=== PATIENT | male | born 2000 | race Caucasian/White ===

== ENCOUNTER 2022-03-08 12:13 | Emergency (ER) | payer SELFPAY ==
[2022-03-08 12:15] VITALS: BP 122/77; PULSE 87; RESP 14; TEMP 36.6; O2SAT 99; BMI 19.8
--- NOTE | 2022-03-08 12:31 | EX.ED.UPPERE ---
HPI History of Present Illness HPI Narrative: Patient presents with laceration to his left hand that occurred today. Patient was carrying a washing machine when the other person who was helping him slipped and let go of the washing machine. Patient states he cut his fingers on the edge of the metal. Patient admits to some bleeding over the index middle and ring fingers. Patient admits to some tingling in his index and middle fingers. Patient denies any weakness. Patient is unsure of his last tetanus. Patient states his pain is better with elevation of his left hand. Chief Complaint: Laceration Occured/Mechanism Comment: Cut on edge of washing machine Onset/Context/Timing Onset: Today Context: Sudden Onset Timing: Continuous Quality of Pain: Sharp Location: Left index middle and ring fingers Worsened by: Dependent position Relieved by: Elevation of the left hand Associated Symptoms Associated Symptoms: Positive for Parasthesia; Negative for Weakness and Loss of Funtion Narrative Tetanus Immunization: Unknown PFSH PFS Medical History no medical history no medical history Allergy/AdvReac Type Severity Reaction Status Date / Time No Known Allergies Allergy Verified 03/08/22 12:15 Surgical History no surgical history no surgical history Social History Smoking Status: Unknown if ever smoked ROS ROS ED Constitutional Constitutional ED: Denies chills or fever(s) Eyes Eyes: Denies blurry vision or change in vision ENT ENT ED: Denies rhinorrhea or sore throat Cardiovascular Cardiovascular: Denies chest pain or palpitations Respiratory/Chest Respiratory/Chest: Denies cough or dyspnea Gastrointestinal Gastrointestinal: Denies nausea or vomiting Genitourinary Genitourinary ED: Denies dysuria or hematuria Musculoskeletal Musculoskeletal: Denies back pain or neck pain Integumentary Denies abscess or rash Neurologic Neurologic: Denies headache(s) or weakness Allergic/Immunologic Allergic/Immunologic ED: Denies mouth swelling or urticaria EXAM Physical Exam Const Vital Signs: 03/08/22 12:15 Temperature 97.9 F Temperature Source Temporal Pulse Rate 87 Respiratory Rate 14 Blood Pressure 122/77 H Blood Pressure Mean 92 Pulse Ox 99 Oxygen Delivery Method Room Air Positive well nourished and well developed General Appearance ED: well developed and NAD HEENT Reports moist mucous membranes Extremity Extremity Narrative: There is a 1 cm full-thickness linear laceration over the palmar aspect of the left index finger on the proximal phalanx. There is a 1 cm full-thickness linear laceration on the palmar aspect of the proximal phalanx of the left middle finger. There is a 0.5 cm superficial laceration on the palmar aspect of the middle phalanx of the left ring finger. There is no active bleeding. There is no obvious deformity. There is mild gapping of the wound margins of the index and middle finger lacerations. There is no gapping of the wound margins of the ring finger. There are no foreign bodies. Strength is 5/5 in flexion extension of the MP, PIP, and DIP joints. Capillary refill less than 2 seconds in all digits. Sensation was intact to light touch in all digits.. Neuro oriented x3, CN's II-XII intact bilaterally, moves all extremities, no focal motor deficits and no sensory deficits noted Sensorium / Orientation: alert Psych mental status grossly normal MDM MDM MDM Narrative Medical decision making narrative: Patient was given a tetanus booster. The left index and middle finger were anesthetized 1% plain lidocaine via digital block. The wounds were cleaned and irrigated with copious amounts of normal saline. The laceration of the left index finger was closed with 1 simple interrupted #4-0 nylon suture under sterile technique. The laceration of the left middle finger was closed with 2 simple interrupted #4-0 nylon sutures under sterile technique. Bacitracin dressings were applied. Patient tolerated the procedure well. Patient was instructed to keep the wounds clean and dry. Patient was instructed to follow-up with his primary care physician in 5 days for wound recheck and suture removal. Patient understood and was agreeable with the plan. All questions were answered. Discharge Plan Triage Chief Complaint: Laceration ED Provider: Phil Jameson Dx/Rx/DC Orders Clinical Impression: Laceration of left index finger, Laceration of left middle finger Instructions: ED Laceration, Hand: All Closures Primary Care Provider: Care Physician,No Primary Referrals: Rosa Hammer MD [STAFF PHYSICIAN] - 5 Days for suture removal Care Physician,No Primary [Primary Care Provider] - Disposition Disposition: Home, Self Care
[2022-03-08] MEDS: Diphth,Pertuss(Acell),Tet Vac 0.5 ML Vial IM (12:47)
[2022-03-08] MEDS: Lidocaine 1% (20 ml mdv) 20 ML Vial INFILT (12:47)
--- NOTE | 2022-03-08 13:45 | CM.ED ---
Social Work Consult: No PCP/Self-pay Referral source: Self referral due to above. Met with patient in room. Introduced self and social media specialist role. Patient agreeable to speak with this social media specialist. This social media specialist broached conversation about self-pay status. Patient states I actually have insurance, I just can't remember what it is. This social media specialist encouraged patient to call registration at [facility] when patient is able to confirm insurance provider. Patient voiced to have a card from registration and plans to call into the hospital later within 24hours. This social media specialist broached topic of no PCP. Patient confirms to not have a PCP and is agreeable to this social media specialist providing patient with list of PCP's that are local to patient geographical region, list provided. Patient denies any further needs/concerns. No further services requested or indicated. Kenyatta MALDONADO, TAZS
== END 2022-03-08 13:54 | disposition home or self-care (01) ==
PROVIDERS: Emergency Provider Emergency Medicine; Visit Provider Emergency Medicine
DX: S61.211A Laceration without foreign body of left index finger without damage to nail, initial encounter (principal); S61.213A Laceration without foreign body of left middle finger without damage to nail, initial encounter; Z23 Encounter for immunization; W26.8XXA Contact with other sharp object(s), not elsewhere classified, initial encounter; Y93.E6 Activity, residential relocation
CPT/HCPCS: 12001; 90471; 90715; 99283

== ENCOUNTER 2024-05-09 23:14 | Emergency (ER) | payer OTHER, SELFPAY ==
[2024-05-09 23:15] VITALS: BP 123/69; PULSE 92; RESP 18; TEMP 35.9; O2SAT 95; BMI 18.9
[2024-05-10] MEDS: Doxycycline 100 MG CAPSULE PO (00:30)
[2024-05-10] MEDS: Ceftriaxone 500 MG Vial IM (00:30)
[2024-05-10] MEDS: oxyCODONE 5 MG Tablet PO (00:30)
[2024-05-10 00:56] LABS: Red Blood Cells-Urine 0 SEEN /hpf (0-5); White Blood Cells 0 SEEN /hpf (0-5)
[2024-05-10 01:14] VITALS: BP 121/66; PULSE 76; RESP 18; O2SAT 95
[2024-05-10 01:18] LABS: Color, Urine Yellow (Yellow); Glucose, Dipstick Normal (Normal); Ketone-Dipstick 15 mg/dl (Negative); Leukocyte Esterase-Dipstick Negative /ul (Negative); Nitrite-Dipstick Negative (Negative); Occult Blood-Urine Negative /ul (Negative); Protein-Dipstick 15 mg/dl (Negative); Specific Gravity, Urine 1.015 (1.002-1.030); Urine Bilirubin Dipstick Negative (Negative); Urine Clarity Clear (Clear); Urine Urobilinogen 1 mg/dl (Normal)
[2024-05-10 01:26] LABS: Amorphous Sediment 1+; Bacteria 3+ /hpf (None Seen); Hyaline Cast 0-5 SEEN /lpf (0-5); Mucous, Urine 1+ /hpf (<or=2+); Squamous Epithelial Cells - UA 0-5 SEEN /hpf (0-5)
--- NOTE | 2024-05-10 01:38 | EDS_ITS ---
HPI History of Present Illness Chief Complaint: Male Pain/Injury Informant: patient Narrative Narrative: Patient is a 23-year-old male with no significant past medical history. He states that over the past 3 days he has had mild dysuria as well as left-sided testicular pain. He states he has been no trauma or excessive activity. He states that today the pain increased in severity and this concerned him and therefore he comes in for evaluation. He denies any penile discharge or previous history of STD. PFSH PFSH Home Medications ?Medication ?Instructions ?Recorded ?Last Taken ?Type doxycycline hyclate 100 mg capsule 100 mg PO BID 14 days #28 caps 05/10/24 Unknown Rx oxycodone-acetaminophen 5 mg-325 1 tab PO Q6H PRN pain 3 days #12 05/10/24 Unknown Rx mg tablet (Percocet) tabs Allergy/AdvReac Type Severity Reaction Status Date / Time No Known Allergies Allergy Verified 05/09/24 23:14 Social History Smoking Status: Never smoker ROS ROS ED Constitutional Constitutional ED: Denies chills or fever(s) ENT ENT ED: Denies sore throat Cardiovascular Cardiovascular: Denies chest pain Respiratory/Chest Respiratory/Chest: Denies cough or dyspnea Gastrointestinal Gastrointestinal: Denies abdominal pain, diarrhea, nausea or vomiting Genitourinary Genitourinary ED: Reports dysuria and other Details: Positive left testicular pain ; Denies hematuria or urinary frequency Musculoskeletal Musculoskeletal: Denies back pain Integumentary Denies rash Neurologic Neurologic: Denies headache(s) Hematologic/Lymphatic Hematologic/Lymphatic: Denies easy bleeding or easy bruising EXAM Physical Exam Const Vital Signs: 05/09/24 23:15 05/10/24 01:14 05/10/24 01:51 Temperature 96.7 F L 97.7 F L Temperature Source Temporal Pulse Rate 92 76 76 Respiratory Rate 18 18 18 Blood Pressure 123/69 H 121/66 H 121/66 H Blood Pressure Mean 87 84 84 Pulse Ox 95 95 95 Oxygen Delivery Method Room Air Room Air Positive well nourished and well developed General Appearance ED: well developed HEENT HEENT Narrative: Normocephalic atraumatic Eyes PERRL and EOMs intact bilaterally General Eye ED: Negative for scleral icterus Neck supple Resp normal respiratory effort and clear to auscultation bilaterally Cardio regular rate and regular rhythm GI non-tender, non-distended and no masses Auscultation: normoactive bowel sounds Palpation: soft Narrative: Normal uncircumcised male without blood or discharge from the urethral meatus. No testicular swelling noted. No abnormal lie to the testicles. No obvious hernia palpated. There is increased pain on palpation of the upper posterior section of the left testicle. No overlying erythema or warmth or masses. Back/Spine no CVA tenderness Extremity normal to inspection Neuro oriented x3 and CN's II-XII intact bilaterally Sensorium / Orientation: alert Motor Exam: strength 5/5 throughout Psych mental status grossly normal Skin no rashes or lesions noted MDM MDM MDM Narrative Medical decision making narrative: Patient arrived with stable vitals and reported mild dysuria that has increased over the last few days and now has testicular pain. Differential diagnosis is for UTI versus pyelonephritis versus STD versus epididymitis versus testicular torsion. There is no abnormal lie to the testicle and the patient has dysuria and is symptoms of increased gradual for multiple days which goes against torsion. Therefore do not feel there is need for an emergent ultrasound but patient will be given an order to have 1 done as an outpatient. With concern for UTI versus STD a urine sample and gonorrhea/committee test were obtained. Urine shows +3 bacteria without white blood cells and based on his young age and symptoms this is most likely correlate with STD. Therefore he was given Rocephin and placed on doxycycline. On reevaluation he is resting comfortably and therefore is history exam and workup are most consistent with STD and there are no obvious signs of torsion by exam and he does not have testicular cellulitis or abscess there is no need for further workup and he is otherwise safe for discharge History & Record Review Discussion w/independent historian: Patient Lab Data Labs: Laboratory Results - last 24 hr 05/10/24 00:43 Urine Color Yellow Urine Clarity Clear Urine pH 7.0 Ur Specific [place] 1.015 Urine Protein 15 H Urine Glucose (UA) Normal Urine Ketones 15 H Urine Occult Blood Negative Urine Nitrite Negative Urine Bilirubin Negative Urine Urobilinogen 1 H Ur Leukocyte Esterase Negative Urine RBC 0 SEEN Urine WBC 0 SEEN Ur Squamous Epith Cells 0-5 SEEN Amorphous Sediment 1+ Urine Bacteria 3+ Hyaline Casts 0-5 SEEN Urine Mucus 1+ Discharge Plan Triage Chief Complaint: Male Pain/Injury ED Provider: Christiano Rosas Dx/Rx/DC Orders Clinical Impression: Acute epididymitis Instructions: ED Epididymitis, ED STI Male Treated Prescriptions: New doxycycline hyclate 100 mg capsule 100 mg PO BID 14 Days Qty: 28 0RF oxycodone-acetaminophen [Percocet] 5-325 mg tablet 1 tab PO Q6H PRN (Reason: pain) 3 Days Qty: 12 0RF Other Ambulatory Orders: Testicular with Arterial Flow (Routine) Facility: [facility] - Location: [facility] Ordered By: Dr. Christiano Rosas Primary Care Provider: Baldo Bruno Referrals: Baldo Bruno DO [Primary Care Provider] - Activity Restrictions/Additional Instructions: Please obtain your outpatient testicular ultrasound to further assess the cause of your testicular pain. However your exam indicates this is most likely epididymitis caused by a STD. Take the doxycycline as directed to help resolve the infection and pain and refrain from sexual activity until your antibiotics are completed. Return to the ER should you have any further concerns Print Language: [place] Citizen Disposition Disposition: Home, Self Care Discharge Date/Time: 05/10/24 01:53
[2024-05-10 01:51] VITALS: BP 121/66; PULSE 76; RESP 18; TEMP 36.5; O2SAT 95
== END 2024-05-10 01:53 | disposition home or self-care (01) ==
PROVIDERS: Emergency Provider Emergency Medicine; PCP Family Medicine; Visit Provider Emergency Medicine
DX: N45.1 Epididymitis (principal)
CPT/HCPCS: 81001; 87491; 87591; 96372; 99283; A4216